=== PATIENT | female | born 1945 | race American Indian/Alaskan Native ===

== ENCOUNTER 2016-10-03 12:29 | Inpatient (IN) | payer MEDICARE ==
--- NOTE | 2016-10-03 12:52 | Emergency Department Report ---
Chief Complaint: Chest Pain Stated Complaint: CHEST PAIN Time Seen by Provider: 10/03/16 12:46 - HPI History of Present Illness: Patient is a 70-year-old female who presents to ED complaining that side and sharp, closed, it out of 10 intensity left-sided chest pain. 2 day. Patient states yesterday she started experiencing chest pain. Patient states sometimes pain radiates down her left arm and starts to tingle. She denies loss of consciousness. Patient states she takes blood pressure medication. Patient denies fevers chills/nausea/vomiting/abdominal pain/dysuria/headaches/ dizziness. - ROS Review of Systems: As noted in HPI - Exam Vital Signs: Vital Signs 10/03/16 12:30 Temperature 97.7 F Pulse Rate 73 Respiratory 20 Rate Blood Pressure 140/80 O2 Sat by Pulse 100 Oximetry Physical Exam: GENERAL: Alert and oriented x3, no apparent distress, Normal Gait, atraumatic. HEAD: Head is normocephalic and a-traumatic. EYES: Extra ocular muscles are intact. Pupils are equal, round, and reactive to light and accommodation. NECK: Supple. Non edematous, No carotid bruits. No lymphadenopathy or thyromegaly. LUNGS: Symetrical with respiration, No wheezing, no rales or crackles, CTAB. HEART: S1, S2 present, regular rate and rhythm without murmur, no rubs, no gallops. ABDOMEN: No organomegaly was noted,Positive bowel sounds, soft, and non- distended. . Nontender to palpation on all Quadrants, NO CVA tenderness. SKIN: Warm and dry, No lesions, No ulceration or induration present. MSE screening note: Focused history and physical exam performed. Due to findings the following was ordered: ED Medical Decision Making - EKG Data EKG shows normal: sinus rhythm (with occasional PVCs and fusion complexes) - EKG Data Interpretation: other (nonspecific T-wave abnormality) - Medical Decision Making Chest pain protocol ordered. EKG completed EKG result as specified. Patient is in no acute or respiratory distress. Patient awaiting to see the physician. ED Disposition for MSE Condition: Stable
[2016-10-03 14:03] LABS: Anion Gap 22 mmol/L; Blood Urea Nitrogen 16 mg/dL (7-17); Calcium 9.9 mg/dL (8.4-10.2); Carbon Dioxide 22 mmol/L (22-30); Chloride 101.2 mmol/L (98-107); Glucose 99 mg/dL (65-100); Potassium 3.6 mmol/L (3.6-5.0); Sodium 142 mmol/L (137-145)
[2016-10-03 14:05] LABS: Basophils % (Auto) 0.9 % (0.0-1.8); Eosinophils % (Auto) 0.7 % (0.0-4.3); Hematocrit 37.3 % (30.3-42.9); Hemoglobin 12.4 gm/dl (10.1-14.3); Mean Corpuscular HGB Conc 33 % (30-34); Mean Corpuscular Hemoglobin 27 pg (28-32); Mean Corpuscular Volume 81 fl (79-97); Platelet Count 421 K/mm3 (140-440); Red Blood Count 4.59 M/mm3 (3.65-5.03); Red Cell Distribution Width 15.6 % (13.2-15.2); White Blood Count 7.6 K/mm3 (4.5-11.0)
[2016-10-03] MEDS ORDERED: PEPCID IV ONE (16:49)
[2016-10-03] MEDS ORDERED: NACL 0.9% 1000 ML 1,000 ML IV ONE (16:49)
[2016-10-03] MEDS ORDERED: NITROSTAT SL PRN (16:50)
--- NOTE | 2016-10-03 16:52 | Emergency Department Report ---
ED General Adult HPI - General Chief complaint: Chest Pain Stated complaint: CHEST PAIN Time Seen by Provider: 10/03/16 16:40 Source: patient Mode of arrival: Wheelchair Limitations: No Limitations - History of Present Illness Initial comments: Primary care Dr.: Dr. Betancourt Past medical history: Hypertension, GERD, daily use of aspirin This is a 70-year-old female, previously unknown to me. She presents to the ER complaining of dizziness, chest pain, shortness of breath and syncope. Patient reports that chest pain is central and left-sided, radiates to the left upper extremity, and is associated with dizziness, sensation of almost passing out. Patient admits to shortness of breath, but denies vomiting or diaphoresis. There is no leg pain. There is no leg swelling. No recent trips greater than 4 hours. No recent hospital admissions. Patient reports no stress test since the mid . There is no history of hematemesis or bright red blood per rectum. She reports that while in the waiting room today waiting to register, she passed out, thinks she hit her head. Prior to the event, she did not have sudden or thunderclap headache, or severe neck pain. She does admit to chronic lower back pain, but this is not new, worsening or different. -: Gradual Location: chest Radiation: extremity Quality: aching Consistency: intermittent Improves with: none Worsens with: none Associated Symptoms: chest pain, headaches, syncope - Related Data Allergies Allergy/AdvReac Type Severity Reaction Status Date / Time No Known Allergies Allergy Unverified 10/03/16 12:30 ED Review of Systems ROS: Stated complaint: CHEST PAIN Other details as noted in HPI Constitutional: malaise, weakness Eyes: denies: vision change ENT: denies: epistaxis Respiratory: shortness of breath Cardiovascular: chest pain, syncope Gastrointestinal: denies: vomiting Genitourinary: denies: dysuria Musculoskeletal: back pain (chronic) Skin: denies: lesions Neurological: headache ED Past Medical Hx - Past Medical History Hx Hypertension: Yes Hx GERD: Yes Additional medical history: CHRONIC BACK PAIN - Surgical History Additional Surgical History: BACK SURGERY X 4. HYSTERECTOMY. TONSILLECTOMY - Social History Smoking Status: Former Smoker Substance Use Type: None ED Physical Exam - General Limitations: No Limitations General appearance: alert, in no apparent distress - Head Head exam: Present: atraumatic, normocephalic - Eye Eye exam: Present: normal appearance, EOMI. Absent: nystagmus - ENT ENT exam: Present: normal exam, normal orophraynx, mucous membranes moist, normal external ear exam - Neck Neck exam: Present: normal inspection, full ROM. Absent: tenderness, meningismus - Respiratory Respiratory exam: Present: normal lung sounds bilaterally. Absent: respiratory distress, wheezes, rales, rhonchi, stridor, chest wall tenderness - Cardiovascular Cardiovascular Exam: Present: regular rate, normal rhythm, normal heart sounds. Absent: bradycardia, tachycardia, irregular rhythm, systolic murmur, diastolic murmur, rubs, gallop - GI/Abdominal GI/Abdominal exam: Present: soft, normal bowel sounds. Absent: distended, tenderness, guarding, rebound, rigid, pulsatile mass - Extremities Exam Extremities exam: Present: normal inspection, full ROM, normal capillary refill. Absent: tenderness, pedal edema, joint swelling, calf tenderness - Back Exam Back exam: Present: normal inspection, full ROM. Absent: tenderness, CVA tenderness (R), CVA tenderness (L), muscle spasm, paraspinal tenderness, vertebral tenderness - Neurological Exam Neurological exam: Present: alert, oriented X3, normal gait (normal gait. Normal tandem gait. Negative Romberg. Normal [id number]. No pass pointing.) , other (Extraocular movements intact. Tongue midline. No facial droop. Facial sensation intact to light touch in the V1, V2, V3 distribution bilaterally. 5 and 5 strength in 4 extremities.. Sensation is intact to light touch in 4 extremities.). Absent: motor sensory deficit - Psychiatric Psychiatric exam: Present: normal affect, normal mood - Skin Skin exam: Present: warm, dry, intact, normal color. Absent: rash ED Course Vital Signs 10/03/16 10/03/16 10/03/16 12:30 18:12 18:18 Temperature 97.7 F Pulse Rate 73 58 L Respiratory 20 20 Rate Blood Pressure 140/80 169/75 Blood Pressure 169/75 [Left] O2 Sat by Pulse 100 99 Oximetry - Reevaluation(s) Reevaluation #1: 10/03/16 17:27 Differential diagnosis: Acute coronary syndrome, structural cardiac disease, pulmonary embolus, concussion, transient ischemic attack, electrolyte imbalance , orthostasis Assessment and plan: Elderly female with , hypertension, chest pain, shortness of breath, syncope. She has a GCS of 15, with an NIH score of 0.Patient is clinically sober at this time. The cervical spine is cleared through nexus and solomon islander c spine rule Low risk by well's criteria, no pulmonary embolus or DVT risk factors. Laboratory studies, CT scan of the head pending given head trauma. D-dimer is pending. Plan to admit once initial data points back. Reevaluation #2: 10/03/16 18:15 CT scan of the head negative. D-dimer positive. CT scan of the chest ordered. Patient's remaining ER pending results of the CAT scan of the chest. However , case is discussed with the Hospital physician, Dr. Bruner, who accepts the patient to his service for chest pain and syncope. Reevaluation #3: 10/03/16 21:04 CT scan of the chest negative. Patient appears improved. She will be sent upstairs for further evaluation and management. ED Medical Decision Making - Lab Data Result diagrams: 10/03/16 13:19 10/03/16 13:19 Vital Signs 10/03/16 12:30 Temperature 97.7 F Pulse Rate 73 Respiratory 20 Rate Blood Pressure 140/80 O2 Sat by Pulse 100 Oximetry Laboratory Last Values WBC 7.6 K/mm3 (4.5-11.0) 10/03/16 13:19 RBC 4.59 M/mm3 (3.65-5.03) 10/03/16 13:19 Hgb 12.4 gm/dl (10.1-14.3) 10/03/16 13:19 Hct 37.3 % (30.3-42.9) 10/03/16 13:19 MCV 81 fl (79-97) 10/03/16 13:19 MCH 27 pg (28-32) L 10/03/16 13:19 MCHC 33 % (30-34) 10/03/16 13:19 RDW 15.6 % (13.2-15.2) H 10/03/16 13:19 Plt Count 421 K/mm3 (140-440) 10/03/16 13:19 Lymph % (Auto) 42.6 % (13.4-35.0) H 10/03/16 13:19 [place] % (Auto) 8.3 % (0.0-7.3) H 10/03/16 13:19 Eos % (Auto) 0.7 % (0.0-4.3) 10/03/16 13:19 Baso % (Auto) 0.9 % (0.0-1.8) 10/03/16 13:19 Lymph # 3.2 K/mm3 (1.2-5.4) 10/03/16 13:19 [place] # 0.6 K/mm3 (0.0-0.8) 10/03/16 13:19 Eos # 0.1 K/mm3 (0.0-0.4) 10/03/16 13:19 Baso # 0.1 K/mm3 (0.0-0.1) 10/03/16 13:19 Seg Neutrophils % 47.5 % (40.0-70.0) 10/03/16 13:19 Seg Neutrophils # 3.6 K/mm3 (1.8-7.7) 10/03/16 13:19 Sodium 142 mmol/L (137-145) 10/03/16 13:19 Potassium 3.6 mmol/L (3.6-5.0) 10/03/16 13:19 Chloride 101.2 mmol/L (98-107) 10/03/16 13:19 Carbon Dioxide 22 mmol/L (22-30) 10/03/16 13:19 Anion Gap 22 mmol/L 10/03/16 13:19 BUN 16 mg/dL (7-17) 10/03/16 13:19 Creatinine 1.0 mg/dL (0.7-1.2) 10/03/16 13:19 Estimated GFR 55 ml/min 10/03/16 13:19 BUN/Creatinine Ratio 16.00 % 10/03/16 13:19 Glucose 99 mg/dL (65-100) 10/03/16 13:19 Calcium 9.9 mg/dL (8.4-10.2) 10/03/16 13:19 Magnesium 1.6 mg/dL (1.7-2.3) L 10/03/16 17:05 Troponin T < 0.010 ng/mL (0.00-0.029) 10/03/16 15:47 - EKG Data 10/03/16 17:28 Normal sinus, 68 beats minute, normal axis, normal intervals, premature ventricular contractions, nonspecific T-wave abnormality, abnormal EKG, not morphologically consistent with STEMI - Radiology Data Radiology results: image reviewed interpreted by me: One view x-ray of the chest demonstrates no acute disease ct head negative Critical care attestation.: If time is entered above; I have spent that time in minutes in the direct care of this critically ill patient, excluding procedure time. ED Disposition Clinical Impression: Syncope, Chest pain Disposition: OP ADMITTED IP TO THIS HOSP Is pt being admited?: Yes Condition: Stable
[2016-10-03] MEDS ORDERED: MAGNESIUM SULFATE 2GM/50ML 50 ML IV ONE (17:24)
[2016-10-03 17:41] LABS: INR 1.06 (0.87-1.13)
--- NOTE | 2016-10-03 17:57 | Cat Scan Report ---
FINAL REPORT EXAM: CT HEAD/BRAIN WO CON HISTORY: syncope head trauma TECHNIQUE: CT head without contrast PRIORS: None. FINDINGS: No acute intra-axial or extra-axial hemorrhage is identified. There is no evidence of midline shift or mass effect. The ventricles and sulci are within normal limits. Egnle-white matter differentiation is intact. No acute parenchymal abnormalities seen. Bony calvarium is grossly intact. Visualized portions of the mastoids and paranasal sinuses are unremarkable. IMPRESSION: Negative CT head
[2016-10-03 19:21] LABS: Bilirubin,Urine NEG (Negative); Blood,Urine NEG (Negative); Ketones,Urine TR mg/dL (Negative); Leukocyte Esterase,Urine TR (Negative); Mucus,Urine FEW /HPF; Nitrite,Urine NEG (Negative); Urobilinogen,Urine < 2.0 mg/dL (<2.0)
--- NOTE | 2016-10-03 19:38 | Cat Scan Report ---
FINAL REPORT EXAM: CT ANGIO CHEST HISTORY: cp and syncope TECHNIQUE: CT chest CT angiogram with reconstructions PRIORS: None. FINDINGS: There is no evidence of filling defect within the central pulmonary vasculature to suggest the presence of acute pulmonary embolus. No evidence of mediastinal pathologic lymph node enlargement Heart and great vessels are unremarkable. The aorta is normal in caliber. No focal pulmonary infiltrate identified. No pleural fluid collection seen. No acute pulmonary abnormality noted. Visualized portion of the upper abdomen demonstrates no acute change. Noted is a low-density focus within the left lobe of the liver 1.4 centimeters likely reflecting cyst or hemangioma. IMPRESSION: No CT evidence of acute pulmonary embolus No acute abnormality seen Low-density focus within liver likely reflects a cyst or hemangioma
[2016-10-03] MEDS ORDERED: ZANAFLEX PO PRN (22:20)
[2016-10-03] MEDS ORDERED: SODIUM CHLORIDE FLUSH SYRINGE 10 ML IV PRN (22:26)
--- NOTE | 2016-10-03 22:26 | History and Physical Report ---
History of Present Illness Date of examination: 10/03/16 Date of admission: 10/03/16 18:14 Chief complaint: Chest pain and passed out. History of present illness: 70-year-old female presents to the ER complaining of dizziness, chest pain, shortness of breath and syncope. Patient reports that chest pain is central and left-sided, radiates to the left upper extremity, and is associated with dizziness, sensation of almost passing out. Patient admits to shortness of breath, but denies vomiting or diaphoresis. There is no leg pain. There is no leg swelling. No recent trips greater than 4 hours. No recent hospital admissions. Patient reports no stress test since the mid . There is no history of hematemesis or bright red blood per rectum. She reports that while in the waiting room today waiting to register, she passed out, thinks she hit her head. Prior to the event, she did not have sudden or thunderclap headache, or severe neck pain. She does admit to chronic lower back pain, but this is not new, worsening or different. Gradual Location: chest Radiation: extremity Quality: aching Consistency: intermittent Improves with: none Worsens with: none Associated Symptoms: chest pain, headaches, syncope Past History Past Medical History: GERD, hypertension Past Surgical History: hysterectomy, Other (Back surgeryx4+Tonsillectomy) Social history: lives with family, smoking (in the past) Medications and Allergies Allergies Allergy/AdvReac Type Severity Reaction Status Date / Time No Known Allergies Allergy Unverified 10/03/16 12:30 Home Medications Medication Instructions Recorded Confirmed Last Taken Type Hydrochlorothiazide [HCTZ] 25 mg PO QDAY 10/03/16 10/03/16 10/03/16 History Losartan [Cozaar] 50 mg PO QDAY 10/03/16 10/03/16 10/03/16 History Omeprazole Magnesium [PriLOSEC Otc] 20 mg PO DAILY 10/03/16 10/03/16 10/03/16 History Ondansetron [Zofran TAB] 4 mg PO DAILY 10/03/16 10/03/16 Unknown History Ranitidine HCl [Zantac 300 MG TAB] 300 mg PO DAILY 10/03/16 10/03/16 10/03/16 History Tizanidine HCl [Zanaflex] 2 mg PO QHS PRN 10/03/16 10/03/16 Unknown History Active Meds: Active Medications Hydrochlorothiazide (Hctz) 25 mg PO QDAY PAM Losartan Potassium (Cozaar) 50 mg PO QDAY PAM Miscellaneous Medication (Omeprazole Magnesium [Prilosec Otc]) 20 mg PO DAILY PAM Miscellaneous Medication (Ranitidine Hcl [Zantac 300 Mg Tab]) 300 mg PO DAILY PAM Miscellaneous Medication (Tizanidine Hcl [Zanaflex]) 2 mg PO QHS PRN PRN Reason: Muscle Spasm Nitroglycerin (Nitrostat) 0.4 mg SL .Q5MIN PRN PRN Reason: Chest Pain Last Admin: 10/03/16 18:12 Dose: 0.4 mg Ondansetron HCl (Zofran) 4 mg PO DAILY [facility] Review of Systems All systems: negative Cardiovascular: chest pain Neurological: syncope Exam - Constitutional Vitals: Temp Pulse Resp BP Pulse Ox 98.5 F 70 16 147/79 100 10/03/16 20:30 10/03/16 20:30 10/03/16 20:30 10/03/16 20:30 10/03/16 20:30 General appearance: Present: no acute distress, well-nourished - EENT Eyes: Present: PERRL ENT: hearing intact, clear oral mucosa - Neck Neck: Present: supple, normal ROM - Respiratory Respiratory effort: normal Respiratory: bilateral: CTA - Cardiovascular Heart Sounds: Present: S1 & S2. Absent: rub, click - Extremities Extremities: pulses symmetrical, No edema Peripheral Pulses: within normal limits - Abdominal General gastrointestinal: Present: soft, non-tender, non-distended, normal bowel sounds Female genitourinary: Present: normal - Integumentary Integumentary: Present: clear, warm, dry - Musculoskeletal Musculoskeletal: gait normal, strength equal bilaterally - Psychiatric Psychiatric: appropriate mood/affect, intact judgment & insight - Neurologic Neurologic: CNII-XII intact, moves all extremities Results - Labs CBC & Chem 7: 10/03/16 13:19 10/03/16 13:19 Labs: Abnormal lab results 10/03/16 Range/Units 18:18 Urine pH 8.0 H (5.0-7.0) Assessment and Plan - Patient Problems (1) Chest pain Current Visit: Yes Status: Acute Plan to address problem: R/o [place] w/u-Serial CE's and Lexiscan (2) Syncope Current Visit: Yes Status: Acute Qualifiers: Encounter type: initial encounter Plan to address problem: Syncope W/u (3) HTN (hypertension) Current Visit: Yes Status: Chronic Qualifiers: Hypertension type: essential hypertension Qualified Code(s): I10 - Essential (primary) hypertension Plan to address problem: cont antihypertensives (4) GERD (gastroesophageal reflux disease) Current Visit: Yes Status: Chronic Qualifiers: Esophagitis presence: without esophagitis Qualified Code(s): K21.9 - Gastro -esophageal reflux disease without esophagitis Plan to address problem: Cont PPI's (5) Low back pain Current Visit: Yes Status: Chronic Qualifiers: Chronicity: chronic Plan to address problem: Cont Tizanidine (6) DVT prophylaxis Current Visit: Yes Status: Acute Plan to address problem: Lovenox 40 mg sq qd
[2016-10-04 00:13] LABS: Creatine Kinase MB 1.3 ng/mL (0.0-4.0)
[2016-10-04 00:14] LABS: Creatine Kinase 148 units/L (30-135)
[2016-10-04] MEDS ORDERED: COZAAR PO SCH ×2 (06:00→10:00)
[2016-10-04] MEDS ORDERED: HCTZ PO SCH ×2 (06:00→10:00)
[2016-10-04] MEDS ORDERED: LEXISCAN IV NR (08:11)
[2016-10-04 08:48] LABS: Creatine Kinase MB 1.9 ng/mL (0.0-4.0)
[2016-10-04 08:50] LABS: Creatine Kinase 230 units/L (30-135)
--- NOTE | 2016-10-04 09:13 | XRay Report ---
Single view chest: History: Chest pain. Findings: Heart size is upper limit of normal. Trachea is midline. No consolidation, pneumothorax or pleural effusion. Impression: No acute cardiopulmonary findings.
[2016-10-04] MEDS ORDERED: PROTONIX PO SCH (10:00)
[2016-10-04] MEDS ORDERED: ZOFRAN PO SCH (10:00)
[2016-10-04] MEDS ORDERED: NON-FORMULARY (Ranitidine Hcl [Zantac 300 Mg Tab] 300 MG) PO SCH (10:00)
--- NOTE | 2016-10-04 12:56 | Discharge Summary ---
Providers - Providers Date of Admission: 10/03/16 18:14 Date of discharge: 10/04/16 Attending physician: YRN VILLEDA 10/03/16 Consult to Cardiac Rehabilitation [CONS] Routine Reason For Exam: Phase I Primary care physician: PROPERTY CARETAKER Hospitalization Condition: Stable Hospital course: 70-year-old female presents to the ER complaining of dizziness, chest pain, shortness of breath and syncope. She had CT of the head without contrast was unremarkable. CTA chest did not reveal any pulmonary embolism, myocardial stress test was also normal. She was discharged home in stable condition. Discharge Diagnosis: (1) Chest pain Current Visit: Yes Status: Acute Plan to address problem: likley due to GERD OR rulled out with-Serial CE's and Lexiscan (2) Syncope Current Visit: Yes Status: Acute Qualifiers: Encounter type: initial encounter Plan to address problem: Likely vasovagal, Ct head unremarkable. (3) HTN (hypertension) Current Visit: Yes Status: Chronic Qualifiers: Hypertension type: essential hypertension Qualified Code(s): I10 - Essential (primary) hypertension Plan to address problem: cont antihypertensives (4) GERD (gastroesophageal reflux disease) Current Visit: Yes Status: Chronic Qualifiers: Esophagitis presence: without esophagitis Qualified Code(s): K21.9 - Gastro -esophageal reflux disease without esophagitis Plan to address problem: Cont PPI's (5) Low back pain Current Visit: Yes Status: Chronic Qualifiers: Chronicity: chronic Plan to address problem: Cont Tizanidine Disposition: DISCHARGED TO HOME OR SELFCARE Time spent for discharge: 32 minutes Core Measure Documentation - Palliative Care Palliative Care/ Comfort Measures: Not Applicable - Core Measures Any of the following diagnoses?: none Exam - Constitutional Vitals: Temp Pulse Resp BP Pulse Ox 98.1 F 79 18 113/91 100 10/04/16 04:35 10/04/16 08:54 10/04/16 04:35 10/04/16 08:54 10/04/16 04:35 General appearance: Present: no acute distress - EENT Eyes: Present: EOM intact ENT: hearing intact, clear oral mucosa - Neck Neck: Present: supple, normal ROM - Respiratory Respiratory: bilateral: CTA - Cardiovascular Rhythm: regular Heart Sounds: Present: S1 & S2 - Extremities Extremities: no ischemia, No edema Peripheral Pulses: within normal limits - Abdominal General gastrointestinal: Present: soft, non-tender, non-distended - Integumentary Integumentary: Present: warm, dry - Psychiatric Psychiatric: appropriate mood/affect - Neurologic Neurologic: no focal deficits, moves all extremities Plan Activity: advance as tolerated, fall precautions Diet: low cholesterol, low salt Follow up with: PRIMARY CARE, [Primary Care Provider] - 3-5 Days
[2016-10-04 17:33] VITALS: BP 117/59
--- NOTE | 2016-10-05 12:57 | Treadmill Report ---
THALLIUM STRESS TEST LEFT VENTRICLE: Left ventricular chamber size is within normal. Perfusion study demonstrates homogeneous uptake of the tracer in all segments, no significant perfusion defects identified. Gated analysis demonstrates normal left ventricular systolic function, ejection fraction 69%. CONCLUSION: Normal myocardial perfusion study. JOB# [id number] CA/NTS
--- NOTE | 2016-10-06 08:10 | Vascular Lab Report ---
CAROTID DUPLEX STUDY: RIGHT PSVEDV CCA PROX: 7014 CCA DIST: 7220 ICA PROX: 6818 ICA MID: 6526 ICA DIST: 7229 ECA: 78 VERT: 45 12 LEFT PSVEDV CCA PROX:[id number]` CCA DIST: 4414 ICA PROX: 5924 ICA MID: 7731 ICA DIST: 6222 ECA: 78 VERT: 39 15 REASON FOR EXAM: Carotid artery stenosis/syncope. COMMENTS ON THE RIGHT: Doppler frequency analysis is consistent with 16 to 49 percent diameter reduction of the internal carotid artery. Minimal amount of plaque is seen. The common carotid artery is patent. The external carotid artery is patent. The vertebral artery has antegrade flow. COMMENTS ON THE LEFT: Doppler frequency analysis is consistent with 16 to 49 percent diameter reduction of the internal carotid artery. Minimal amount of plaque is seen. The common carotid artery is patent. The external carotid artery is patent. The vertebral artery has antegrade flow. IMPRESSION: Less than 50% diameter reduction in the internal carotid arteries bilaterally. Consider repeat carotid artery duplex in 12 months.
--- NOTE | 2016-10-08 08:45 | Query- Chest Pain ---
Sylvester Zapien____Juan Date:____10/08/16 Public Service Director/CDS:____Gold / Maris Phone#: [phone] Exercise your independent professional judgment when responding to query. Questions asked do not imply a particular answer is desired or expected. We greatly appreciate your clarification on this issue. Clinical Documentation States: 70 year old female was admitted on 10/03/16. The patient was complained of chest pain, shortness of breath, and syncope. The discharge summary states " Chest pain, Acute " Clinical Findings Show: Thallium stress test conclusion: Normal myocardial perfusion study Please document the etiology of Chest Pain: [ ] Myocardial Infarction [ ] Pneumonia [ ] Mediastinitis [ ] Costochondritis [ ] Pulmonary Embolism [ ] Coronary Artery Disease [x ] GERD [ ] Other: [ ] Comment/Explanation: [ ] Not applicable Present on Admission: [x ] Yes (Y) [ ] Clinically undeterminable (W) [ ] No(N) Please document response in your Progress Notes and/or Discharge Summary and indicate if the condition was present on admission. DAVID
== END 2016-10-04 18:30 | disposition home or self-care (01) | DRG 392 ==
LOC: ED 12:29 → 4A 18:14
PROVIDERS: ADMIT Internal Medicine; ATTEND Internal Medicine
DX: K21.9 Gastro-esophageal reflux disease without esophagitis (principal); R55 Syncope and collapse; I10 Essential (primary) hypertension; G89.29 Other chronic pain; M54.5 Low back pain; Z79.82 Long term (current) use of aspirin; Z90.710 Acquired absence of both cervix and uterus; Z98.890 Other specified postprocedural states; Z87.891 Personal history of nicotine dependence
CPT/HCPCS: 36415; 70450; 71010; 71275; 78452; 80048; 81001; 82550; 82553; 83735; 84443; 84484; 85025; 85379; 85610; 93005; 93010; 93880; 96374; 96375; A9502; J2785; J3475; J7030; Q0162; Q9967

== ENCOUNTER 2019-05-16 14:57 | Observation (INO) | payer MEDICARE ==
[2019-05-16] MEDS ORDERED: BABY ASPIRIN PO ONE (15:13)
[2019-05-16] MEDS ORDERED: ZOFRAN IV ONE (15:14)
[2019-05-16] MEDS ORDERED: MORPHINE IV ONE (15:14)
--- NOTE | 2019-05-16 15:18 | Emergency Department Report ---
ED Chest Pain HPI - General Chief Complaint: Chest Pain Stated Complaint: CHEST PAIN/COUGH Time Seen by Provider: 05/16/19 15:07 Source: patient, EMS Mode of arrival: Stretcher Limitations: No Limitations - History of Present Illness Initial Comments: Patient is 73 years old female with history of hypertension and chronic back praline. Patient presented to the ER complaining of left sided chest pain, sharp with radiation to the back. Patient stated that pain has been going on for the last 3 days. Patient rated her pain as 10 out of 10. Patient denied any shortness of breath, fever or chills. Patient also stated that she has been coughing also. MD Complaint: chest pain - Related Data Home Medications Medication Instructions Recorded Confirmed Last Taken Losartan [Cozaar] 50 mg PO QDAY 10/03/16 10/03/16 10/03/16 Omeprazole Magnesium [PriLOSEC Otc] 20 mg PO DAILY 10/03/16 10/03/16 10/03/16 Ondansetron [Zofran TAB] 4 mg PO DAILY 10/03/16 10/03/16 Unknown Tizanidine HCl [Zanaflex] 2 mg PO QHS PRN 10/03/16 10/03/16 Unknown hydroCHLOROthiazide [HCTZ] 25 mg PO QDAY 10/03/16 10/03/16 10/03/16 Allergies Allergy/AdvReac Type Severity Reaction Status Date / Time No Known Allergies Allergy Unverified 10/03/16 12:30 Heart Score - HEART Score History: Moderately suspicious EKG: Non-specific Age: > 65 Risk factors: 1-2 risk factors Troponin: < normal limit HEART Score: 5 - Critical Actions Critical Actions: 4-6 pts:12-16.6% risk of adverse cardiac event. Should be admitted ED Review of Systems ROS: Stated complaint: CHEST PAIN/COUGH Other details as noted in HPI Comment: All other systems reviewed and negative Constitutional: denies: chills, fever Respiratory: cough. denies: shortness of breath, SOB with exertion, SOB at rest Cardiovascular: chest pain. denies: palpitations Gastrointestinal: denies: abdominal pain, nausea, vomiting Musculoskeletal: back pain Neurological: denies: headache, weakness, numbness, paresthesias, confusion ED Past Medical Hx - Past Medical History Previous Medical History?: Yes Hx Hypertension: Yes Hx GERD: Yes Additional medical history: CHRONIC BACK PAIN - Surgical History Past Surgical History?: Yes Additional Surgical History: BACK SURGERY X 4. HYSTERECTOMY. TONSILLECTOMY - Social History Smoking Status: Never Smoker Substance Use Type: None - Medications Home Medications: Home Medications Medication Instructions Recorded Confirmed Last Taken Type Losartan [Cozaar] 50 mg PO QDAY 10/03/16 10/03/16 10/03/16 History Omeprazole Magnesium [PriLOSEC Otc] 20 mg PO DAILY 10/03/16 10/03/16 10/03/16 History Ondansetron [Zofran TAB] 4 mg PO DAILY 10/03/16 10/03/16 Unknown History Tizanidine HCl [Zanaflex] 2 mg PO QHS PRN 10/03/16 10/03/16 Unknown History hydroCHLOROthiazide [HCTZ] 25 mg PO QDAY 10/03/16 10/03/16 10/03/16 History ED Physical Exam - General Limitations: No Limitations General appearance: alert, in no apparent distress - Head Head exam: Present: atraumatic, normocephalic, normal inspection - Eye Eye exam: Present: normal appearance, PERRL - ENT ENT exam: Present: normal exam, normal orophraynx, mucous membranes moist - Neck Neck exam: Present: normal inspection, full ROM. Absent: tenderness, meningismus, lymphadenopathy, thyromegaly - Respiratory Respiratory exam: Present: normal lung sounds bilaterally - Cardiovascular Cardiovascular Exam: Present: regular rate, normal rhythm, normal heart sounds - GI/Abdominal GI/Abdominal exam: Present: soft, normal bowel sounds. Absent: distended, tenderness, guarding, rebound, rigid, diminished bowel sounds, organomegaly, mass, bruit, pulsatile mass, hernia - Extremities Exam Extremities exam: Present: normal inspection, full ROM, normal capillary refill - Back Exam Back exam: Present: normal inspection, full ROM. Absent: CVA tenderness (R), CVA tenderness (L), muscle spasm, paraspinal tenderness, vertebral tenderness - Neurological Exam Neurological exam: Present: alert, oriented X3, CN II-XII intact, normal gait, reflexes normal - Psychiatric Psychiatric exam: Present: normal mood - Skin Skin exam: Present: warm, intact, normal color ED Course Vital Signs 05/16/19 05/16/19 05/16/19 15:16 16:30 18:12 Temperature 98.3 F 98.2 F Pulse Rate 68 74 62 Respiratory 14 16 18 Rate Blood Pressure 158/91 159/75 182/85 [Right] O2 Sat by Pulse 98 100 100 Oximetry ED Medical Decision Making - Lab Data Result diagrams: 05/16/19 15:35 05/16/19 15:35 - EKG Data -: EKG Interpreted by Wy EKG shows normal: sinus rhythm Rate: normal - EKG Data Interpretation: no acute changes - Radiology Data Radiology results: report reviewed Referring Physician: KVNG BARTHOLOMEW Patient Name: BOWEN ISBELL Date of : 1945 Sex: Female Report Date: 2019-05-16 Report Status: [place] [address] Cat Scan Report Signed Patient: BOWEN ISBELL MR#: [id number] : 1945 Acct:[id number] Age/Sex: 73 / F ADM Date: 05/16/19 Loc: ED Attending Dr: Ordering Physician: KVNG BARTHOLOMEW Date of Service: 05/16/19 Procedure(s): CT angio chest Accession Number(s): [id number] cc: KVNG BARTHOLOMEW CT angio chest INDICATION / CLINICAL INFORMATION: CHEST PAIN WITH SOB. TECHNIQUE: Precontrast bolus timing images were obtained followed by postcontrast axial and reformatted images. 3-plane MIP reconstructions were performed at an independent workstation by the technologist. All CT scans at this location are performed using CT dose reduction for ALARA by means of automated exposure control. COMPARISON: Chest CTA 10/03/2016 FINDINGS: Pulmonary arterial enhancement is normal bilaterally. No evidence of pulmonary embolism. No acute interstitial or airspace pulmonary disease. No pulmonary nodularity. Thoracic aortic enhancement is homogeneous, no evidence of dissection. Slight ectasia of the ascending thoracic aorta is noted. No cardiac enlargement, pericardial effusion or mediastinal adenopathy. There are small axillary lymph nodes noted bilaterally. No significant upper abdominal abnormalities. Segmental instrumentation noted in the upper lumbar spine IMPRESSION: 1. No evidence of pulmonary embolus or acute abnormality. Signer Name: Irving Wilson MD Signed: 05/16/2019 6:35 PM Workstation Name: [id number] Transcribed By: JESÚS Dictated By: Irving Wilson MD Electronically Authenticated By: Irving Wilson MD Signed Date/Time: 05/16/191834 DD/ 27 TD/TT: - Medical Decision Making Patient is 73 years old female with history of hypertension and chronic back praline. Patient presented to the ER complaining of left sided chest pain, sharp with radiation to the back. Patient stated that pain has been going on for the last 3 days. Patient rated her pain as 10 out of 10. Patient denied any shortness of breath, fever or chills. Patient also stated that she has been coughing also. EKG with no acute change. Troponin is negative so far. CTA chest is negative for PE or aortic dissection. I discussed the patient was Dr. Bruner, he agreed to admit the patient to medical service. Critical Care Time: Yes Critical care time in (mins) excluding proc time.: 30 Critical care attestation.: If time is entered above; I have spent that time in minutes in the direct care of this critically ill patient, excluding procedure time. ED Disposition Clinical Impression: Chest pain, Unstable angina Disposition: - OP ADMIT IP TO THIS HOSP Is pt being admited?: Yes Condition: Stable Instructions: Chest Pain (ED), Angina (ED)
--- NOTE | 2019-05-16 15:48 | XRay Report ---
CHEST 1 VIEW INDICATION: Chest Pain. COMPARISON: 10/03/2016 FINDINGS: Support devices: None. Heart: Within normal limits. Pulmonary vasculature: Normal. Lungs/Pleura: No acute air space or interstitial disease. Additional findings: None. IMPRESSION: 1. No acute findings. Signer Name: Mike Espinoza MD Signed: 05/16/2019 3:43 PM Workstation Name: [id number]
[2019-05-16 16:19] LABS: Basophils % (Auto) 0.2 % (0.0-1.8); Eosinophils # (Auto) 0.1 K/mm3 (0.0-0.4); Eosinophils % (Auto) 0.6 % (0.0-4.3); Hematocrit 36.9 % (30.3-42.9); Hemoglobin 11.9 gm/dl (10.1-14.3); Lymphocytes % (Auto) 31.5 % (13.4-35.0); Mean Corpuscular HGB Conc 32 % (30-34); Mean Corpuscular Volume 82 fl (79-97); Monocytes # (Auto) 0.8 K/mm3 (0.0-0.8); Monocytes % (Auto) 7.9 % (0.0-7.3); Platelet Count 425 K/mm3 (140-440); Red Blood Count 4.52 M/mm3 (3.65-5.03); Red Cell Distribution Width 14.4 % (13.2-15.2)
[2019-05-16 16:27] LABS: INR 1.06 (0.87-1.13)
[2019-05-16 16:28] LABS: Partial Thromboplastin Time 30.9 Sec. (24.2-36.6)
[2019-05-16 16:30] LABS: BUN/Creatinine Ratio 20; Blood Urea Nitrogen 18 mg/dL (7-17); Calcium 9.3 mg/dL (8.4-10.2); Hemolysis Index 5
[2019-05-16 17:48] LABS: Bacteria,Urine 1+ /HPF (Negative); Bilirubin,Urine NEG (Negative); Blood,Urine NEG (Negative); Color,Urine Yellow (Yellow); Hyaline Casts,Urine 2 /LPF; Urobilinogen,Urine < 2.0 mg/dL (<2.0)
[2019-05-16 17:50] LABS: Protein,Urine >500 mg/dL (Negative)
--- NOTE | 2019-05-16 18:40 | Cat Scan Report ---
CT angio chest INDICATION / CLINICAL INFORMATION: CHEST PAIN WITH SOB. TECHNIQUE: Precontrast bolus timing images were obtained followed by postcontrast axial and reformatted images. 3-plane MIP reconstructions were performed at an independent workstation by the technologist. All CT scans at this location are performed using CT dose reduction for ALARA by means of automated exposure control. COMPARISON: Chest CTA 10/03/2016 FINDINGS: Pulmonary arterial enhancement is normal bilaterally. No evidence of pulmonary embolism. No acute interstitial or airspace pulmonary disease. No pulmonary nodularity. Thoracic aortic enhancement is homogeneous, no evidence of dissection. Slight ectasia of the ascending thoracic aorta is noted. No cardiac enlargement, pericardial effusion or mediastinal adenopathy. There are small axillary lymph nodes noted bilaterally. No significant upper abdominal abnormalities. Segmental instrumentation noted in the upper lumbar spine IMPRESSION: 1. No evidence of pulmonary embolus or acute abnormality. Signer Name: Irving Wilson MD Signed: 05/16/2019 6:35 PM Workstation Name: [id number]
[2019-05-16] MEDS ORDERED: NITROSTAT SL ONE (19:01)
[2019-05-16] MEDS ORDERED: PROVENTIL IH PRN (20:25)
[2019-05-16] MEDS ORDERED: SODIUM CHLORIDE FLUSH SYRINGE 10 ML IV PRN (20:25)
[2019-05-16] MEDS ORDERED: DILAUDID IV PRN (20:25)
[2019-05-16] MEDS ORDERED: ZOFRAN IV PRN (20:25)
[2019-05-16] MEDS ORDERED: NITROSTAT SL PRN (20:25)
[2019-05-16] MEDS ORDERED: NACL 0.9% 1000 ML 1,000 ML IV SCH (21:00)
[2019-05-16] MEDS: MORPHINE IV PRN (21:03)
[2019-05-16 21:32] LABS: BUN/Creatinine Ratio 20; Blood Urea Nitrogen 18 mg/dL (7-17); Calcium 9.7 mg/dL (8.4-10.2); Hemolysis Index 11
--- NOTE | 2019-05-16 21:33 | History and Physical Report ---
History of Present Illness Date of examination: 05/16/19 Date of admission: 05/16/2019 Chief complaint: Chest pain History of present illness: 73-year-old -Stateless female with history of hypertension, GERD, and chronic back pain who presents to [facility] ED with complaints of progressively worsening intermittent left sided substernal chest pain. Since she has been experiencing intermittent chest pain for the past week and over the past 2 days it has progressively worsened. Patient states that this morning her pain is worst it has ever been. She describes her pain as sharp left-sided substernal with radiation to back. Pain is aggravated with activity and relieved with rest and pain medicine. She denies nausea, vomiting and and diaphoresis. Patient states that she's experienced similar chest pain approximately 2 years ago (09/2016)at which time she had cardiac workup which revealed normal Lexiscan stress test. Pt states that she is compliant with medications. Denies: n/v/d, fever, diaphoresis, hemoptysis, or recent sick contacts Past History Past Medical History: GERD, hypertension, other (chronic back pain) Past Surgical History: hysterectomy, tonsillectomy, Other ( BACK SURGERY X 4) Social history: lives with family Family history: no significant family history Medications and Allergies Allergies Allergy/AdvReac Type Severity Reaction Status Date / Time No Known Allergies Allergy Unverified 10/03/16 12:30 Home Medications Medication Instructions Recorded Confirmed Last Taken Type Losartan [Cozaar] 50 mg PO QDAY 10/03/16 05/16/19 10/03/16 History Omeprazole Magnesium [PriLOSEC Otc] 20 mg PO DAILY 10/03/16 05/16/19 10/03/16 History Tizanidine HCl [Zanaflex] 2 mg PO QPM PRN 10/03/16 05/16/19 Unknown History Diclofenac Sodium 75 mg PO BID 05/16/19 05/16/19 Unknown History Simvastatin 10 mg PO QPM 05/16/19 05/16/19 Unknown History amLODIPine [Norvasc] 5 mg PO DAILY 05/16/19 05/16/19 Unknown History predniSONE [Deltasone] 10 mg PO BID 05/16/19 05/16/19 Unknown History Active Meds: Active Medications Acetaminophen (Tylenol) 650 mg PO Q4H PRN PRN Reason: Pain MILD(1-3)/Fever >100.5/HURST Albuterol (Proventil) 2.5 mg IH Q3HRT PRN PRN Reason: Shortness Of Breath Aspirin (Baby Aspirin) 81 mg PO QDAY PAM Atorvastatin Calcium (Lipitor) 40 mg PO QHS PAM Enoxaparin Sodium (Lovenox) 40 mg SUB-Q QDAY [facility] Hydralazine HCl (Apresoline) 10 mg IV Q4HR PRN PRN Reason: Blood Pressure Hydromorphone HCl (Dilaudid) 0.5 mg IV Q3H PRN PRN Reason: Pain , Severe (7-10) Sodium Chloride (Nacl 0.9% 1000 Ml) 1,000 mls @ 42 mls/hr IV DIRECT PAM Losartan Potassium (Cozaar) 50 mg PO QDAY [facility] Morphine Sulfate (Morphine) 2 mg IV Q4H PRN PRN Reason: Pain, Moderate (4-6) Last Admin: 05/16/19 21:03 Dose: 2 mg Documented by: Nitroglycerin (Nitrostat) 0.4 mg SL Q5M PRN PRN Reason: Chest Pain Ondansetron HCl (Zofran) 4 mg IV Q8H PRN PRN Reason: Nausea And Vomiting Sodium Chloride (Sodium Chloride Flush Syringe 10 Ml) 10 ml IV BID PAM Sodium Chloride (Sodium Chloride Flush Syringe 10 Ml) 10 ml IV PRN PRN PRN Reason: LINE FLUSH Review of Systems All systems: negative Cardiovascular: chest pain, no syncope, no lightheadedness, no shortness of breath Musculoskeletal: low back pain (chronic) Exam - Physical Exam Narrative exam: Physical exam General appearance: Present: No acute distress, alert and oriented 3, well- developed, well-nourished, older adult -Stateless female - EENT Eyes: Present: PERRL, EOM intact ENT: hearing intact, normal dentition - Neck Neck: Present: supple, normal ROM - Respiratory Respiratory effort: Non-labored Respiratory: CTA bilaterally - Cardiovascular Heart rate: 81 (bpm) Rhythm: SR Heart Sounds: Present: S1 & S2. Absent: rub, click - Extremities Extremities: no ischemia, pulses intact, - Peripheral Assessment Peripheral Pulses: within normal limits - Abdominal General gastrointestinal: soft, non-tender, normal bowel sounds - Integumentary Integumentary: Present: warm, dry, - Musculoskeletal Musculoskeletal: Normal gait -Neurological Neurological: CN II-XII grossly intact - Psychiatric Psychiatric: cooperative - Constitutional Vitals: Temp Pulse Resp BP Pulse Ox 98.2 F 81 16 134/81 97 05/16/19 18:12 05/16/19 21:05 05/16/19 21:05 05/16/19 21:05 05/16/19 21:05 Results - Labs CBC & Chem 7: 05/16/19 15:35 05/16/19 15:35 Labs: Laboratory Last Values WBC 9.6 K/mm3 (4.5-11.0) 05/16/19 15:35 RBC 4.52 M/mm3 (3.65-5.03) 05/16/19 15:35 Hgb 11.9 gm/dl (10.1-14.3) 05/16/19 15:35 Hct 36.9 % (30.3-42.9) 05/16/19 15:35 MCV 82 fl (79-97) 05/16/19 15:35 MCH 26 pg (28-32) L 05/16/19 15:35 MCHC 32 % (30-34) 05/16/19 15:35 RDW 14.4 % (13.2-15.2) 05/16/19 15:35 Plt Count 425 K/mm3 (140-440) 05/16/19 15:35 Lymph % (Auto) 31.5 % (13.4-35.0) 05/16/19 15:35 [place] % (Auto) 7.9 % (0.0-7.3) H 05/16/19 15:35 Eos % (Auto) 0.6 % (0.0-4.3) 05/16/19 15:35 Baso % (Auto) 0.2 % (0.0-1.8) 05/16/19 15:35 Lymph # 3.0 K/mm3 (1.2-5.4) 05/16/19 15:35 [place] # 0.8 K/mm3 (0.0-0.8) 05/16/19 15:35 Eos # 0.1 K/mm3 (0.0-0.4) 05/16/19 15:35 Baso # 0.0 K/mm3 (0.0-0.1) 05/16/19 15:35 Seg Neutrophils % 59.8 % (40.0-70.0) 05/16/19 15:35 Seg Neutrophils # 5.7 K/mm3 (1.8-7.7) 05/16/19 15:35 PT 13.5 Sec. (12.2-14.9) 05/16/19 15:35 INR 1.06 (0.87-1.13) 05/16/19 15:35 APTT 30.9 Sec. (24.2-36.6) 05/16/19 15:35 450.44 ng/mlDDU (0-234) H 05/16/19 15:35 Sodium 140 mmol/L (137-145) 05/16/19 15:35 Potassium 3.6 mmol/L (3.6-5.0) 05/16/19 15:35 Chloride 101.6 mmol/L (98-107) 05/16/19 15:35 Carbon Dioxide 22 mmol/L (22-30) 05/16/19 15:35 20 mmol/L 05/16/19 15:35 BUN 18 mg/dL (7-17) H 05/16/19 15:35 0.9 mg/dL (0.7-1.2) 05/16/19 15:35 Estimated GFR > 60 ml/min 05/16/19 15:35 20 % 05/16/19 15:35 Glucose 94 mg/dL (65-100) 05/16/19 15:35 Calcium 9.3 mg/dL (8.4-10.2) 05/16/19 15:35 < 0.010 ng/mL (0.00-0.029) 05/16/19 20:29 17 units/L (13-60) 05/16/19 15:35 Yellow (Yellow) 05/16/19 17:25 Clear (Clear) 05/16/19 17:25 5.0 (5.0-7.0) 05/16/19 17:25 Ur Specific [place] 1.014 (1.003-1.030) 05/16/19 17:25 >500 mg/dL (Negative) 05/16/19 17:25 Neg mg/dL (Negative) 05/16/19 17:25 Neg mg/dL (Negative) 05/16/19 17:25 Neg (Negative) 05/16/19 17:25 Neg (Negative) 05/16/19 17:25 Neg (Negative) 05/16/19 17:25 < 2.0 mg/dL (<2.0) 05/16/19 17:25 Ur Leukocyte Esterase Neg (Negative) 05/16/19 17:25 2.0 /HPF (0.0-6.0) 05/16/19 17:25 1.0 /HPF (0.0-6.0) 05/16/19 17:25 U Epithel Cells (Auto) < 1.0 /HPF (0-13.0) 05/16/19 17:25 1+ /HPF (Negative) 05/16/19 17:25 Hyaline Casts 2 /LPF 05/16/19 17:25 - Imaging and Cardiology Imaging and Cardiology: CTA: FINDINGS: Pulmonary arterial enhancement is normal bilaterally. No evidence of pulmonary embolism. No acute interstitial or airspace pulmonary disease. No pulmonary nodularity. Thoracic aortic enhancement is homogeneous, no evidence of dissection. Slight ectasia of the ascending thoracic aorta is noted. No cardiac enlargement, pericardial effusion or mediastinal adenopathy. There are small axillary lymph nodes noted bilaterally. No significant upper abdominal abn ormalities. Segmental instrumentation noted in the upper lumbar spine. IMPRESSION: 1. No evidence of pulmonary embolus or acute abnormality. CXR: FINDINGS: Support devices: None. Heart: Within normal limits. Pulmonary vasculature: Normal. Lungs/Pleura: No acute air space or interstitial disease. Additional findings: None. IMPRESSION: 1. No acute findings. Assessment and Plan Assessment and plan: 73-year-old -Stateless female with history of hypertension, GERD, and chronic back pain who presents to [facility] ED with complaints of progressively worsening intermittent left sided substernal chest pain for the past 2 days. Acute Chest Pain -R/O ACS -Initiate chest pain protocol -Continuous telemetry monitoring -Continue supportive care -Pain mgmt -Echo and Lexiscan pending -Troponin negative x3 -Lexican done 09/2018 was normal -Cardiology Consulted Hypertension -Continue to monitor BP -Resume home antihypertensive meds to optimize BP -IV hydralazine when necessary GERD -History of GERD -Start Protonix daily DVT PPX -on Lovenox -SCD's Advance Directives: No VTE prophylaxis?: Chemical Plan of care discussed with patient/family: Yes
[2019-05-16 21:55] LABS: Basophils # (Auto) 0.1 K/mm3 (0.0-0.1); Basophils % (Auto) 0.7 % (0.0-1.8); Eosinophils % (Auto) 0.3 % (0.0-4.3); Hematocrit 37.2 % (30.3-42.9); Hemoglobin 12.6 gm/dl (10.1-14.3); Lymphocytes # (Auto) 3.3 K/mm3 (1.2-5.4); Lymphocytes % (Auto) 31.5 % (13.4-35.0); Mean Corpuscular HGB Conc 34 % (30-34); Mean Corpuscular Volume 82 fl (79-97); Monocytes # (Auto) 0.9 K/mm3 (0.0-0.8); Monocytes % (Auto) 8.9 % (0.0-7.3); Platelet Count 454 K/mm3 (140-440); Red Blood Count 4.55 M/mm3 (3.65-5.03); Red Cell Distribution Width 14.3 % (13.2-15.2)
[2019-05-16] MEDS ORDERED: PROTONIX IV SCH (22:00)
[2019-05-16] MEDS: ZANAFLEX PO PRN (22:44)
[2019-05-16] MEDS: SODIUM CHLORIDE FLUSH SYRINGE 10 ML IV SCH (22:45)
[2019-05-16] MEDS: PRAVACHOL PO SCH (22:45)
[2019-05-16] MEDS: APRESOLINE IV PRN (23:16)
[2019-05-17] MEDS: TYLENOL PO PRN ×2 (04:35→18:36)
[2019-05-17 06:36] LABS: Basophils # (Auto) 0.1 K/mm3 (0.0-0.1); Basophils % (Auto) 1.4 % (0.0-1.8); Eosinophils # (Auto) 0.1 K/mm3 (0.0-0.4); Eosinophils % (Auto) 0.8 % (0.0-4.3); Hematocrit 35.2 % (30.3-42.9); Hemoglobin 11.8 gm/dl (10.1-14.3); Lymphocytes # (Auto) 2.7 K/mm3 (1.2-5.4); Lymphocytes % (Auto) 27.9 % (13.4-35.0); Mean Corpuscular HGB Conc 34 % (30-34); Mean Corpuscular Volume 81 fl (79-97); Monocytes # (Auto) 0.9 K/mm3 (0.0-0.8); Monocytes % (Auto) 9.3 % (0.0-7.3); Platelet Count 382 K/mm3 (140-440); Red Blood Count 4.34 M/mm3 (3.65-5.03); Red Cell Distribution Width 14.2 % (13.2-15.2)
[2019-05-17 06:49] LABS: BUN/Creatinine Ratio 17; Blood Urea Nitrogen 15 mg/dL (7-17); Calcium 9.3 mg/dL (8.4-10.2); Hemolysis Index 4
[2019-05-17] MEDS ORDERED: LEXISCAN IV ONE (07:01)
--- NOTE | 2019-05-17 12:55 | Consultation ---
History of Present Illness Consult date: 05/17/19 Consult reason: chest pain History of present illness: 73-year-old -[place]in[place] female with history of hypertension, GERD, and chronic back pain who presents to ED with complaints of progressively worsening intermittent left sided substernal chest pain. Since she has been experiencing intermittent chest pain for the past week and over the past 2 days it has progressively worsened. Pain is aggravated with activity and relieved with rest and pain medicine. She denies nausea, vomiting and and diaphoresis. Patient denies orthopnea, pnd, palpitations. Patient states that she's experienced similar chest pain approximately 2 years ago (09/2016)at which time she had cardiac workup which revealed normal Lexiscan stress test. Past History Past Medical History: GERD, hypertension, other (chronic back pain) Past Surgical History: hysterectomy, tonsillectomy, Other ( BACK SURGERY X 4) Social history: lives with family Family history: no significant family history Medications and Allergies Allergies Allergy/AdvReac Type Severity Reaction Status Date / Time No Known Allergies Allergy Unverified 10/03/16 12:30 Home Medications Medication Instructions Recorded Confirmed Last Taken Type Losartan [Cozaar] 50 mg PO QDAY 10/03/16 05/16/19 10/03/16 History Omeprazole Magnesium [PriLOSEC Otc] 20 mg PO DAILY 10/03/16 05/16/19 10/03/16 H istory Tizanidine HCl [Zanaflex] 2 mg PO QPM PRN 10/03/16 05/16/19 Unknown History Diclofenac Sodium 75 mg PO BID 05/16/19 05/16/19 Unknown History Simvastatin 10 mg PO QPM 05/16/19 05/16/19 Unknown History amLODIPine [Norvasc] 5 mg PO DAILY 05/16/19 05/16/19 Unknown History predniSONE [Deltasone] 10 mg PO BID 05/16/19 05/16/19 Unknown History Active Meds: Active Medications Acetaminophen (Tylenol) 650 mg PO Q4H PRN PRN Reason: Pain MILD(1-3)/Fever >100.5/HURST Last Admin: 05/17/19 04:35 Dose: 650 mg Documented by: Albuterol (Proventil) 2.5 mg IH Q3HRT PRN PRN Reason: Shortness Of Breath Amlodipine Besylate (Norvasc) 5 mg PO DAILY PAM Aspirin (Baby Aspirin) 81 mg PO QDAY [facility] Atorvastatin Calcium (Lipitor) 40 mg PO QHS [facility] Last Admin: 05/16/19 22:45 Dose: 40 mg Documented by: Enoxaparin Sodium (Lovenox) 40 mg SUB-Q QDAY [facility] Hydralazine HCl (Apresoline) 10 mg IV Q4HR PRN PRN Reason: Blood Pressure Last Admin: 05/16/19 23:16 Dose: 10 mg Documented by: Hydromorphone HCl (Dilaudid) 0.5 mg IV Q3H PRN PRN Reason: Pain , Severe (7-10) Sodium Chloride (Nacl 0.9% 1000 Ml) 1,000 mls @ 42 mls/hr IV DIRECT [facility] Last Admin: 05/16/19 22:39 Dose: 42 mls/hr Documented by: Losartan Potassium (Cozaar) 50 mg PO QDAY [facility] Morphine Sulfate (Morphine) 2 mg IV Q4H PRN PRN Reason: Pain, Moderate (4-6) Last Admin: 05/16/19 21:03 Dose: 2 mg Documented by: Nitroglycerin (Nitrostat) 0.4 mg SL Q5M PRN PRN Reason: Chest Pain Ondansetron HCl (Zofran) 4 mg IV Q8H PRN PRN Reason: Nausea And Vomiting Pantoprazole Sodium (Protonix) 40 mg PO DAILY [facility] Pravastatin Sodium (Pravachol) 20 mg PO QHS [facility] Last Admin: 05/16/19 22:45 Dose: 20 mg Documented by: Sodium Chloride (Sodium Chloride Flush Syringe 10 Ml) 10 ml IV BID [facility] Last Admin: 05/16/19 22:45 Dose: 10 ml Documented by: Sodium Chloride (Sodium Chloride Flush Syringe 10 Ml) 10 ml IV PRN PRN PRN Reason: LINE FLUSH Tizanidine HCl (Zanaflex) 2 mg PO QPM PRN PRN Reason: Muscle Spasm Last Admin: 05/16/19 22:44 Dose: 2 mg Documented by: Review of Systems All systems: negative (pertinent positives in hPI) Physical Examination Vital Signs Temp Pulse Resp BP Pulse Ox 98.3 F 68 14 158/91 98 05/16/19 15:16 05/16/19 15:16 05/16/19 15:16 05/16/19 15:16 05/16/19 15:16 General appearance: no acute distress HEENT: Positive: PERRL, EOMI Neck: Positive: neck supple Cardiac: Positive: Reg Rate and Rhythm Lungs: Positive: Normal Exam Neuro: Positive: Grossly Intact Abdomen: Positive: Unremarkable Extremities: Absent: edema Results 05/17/19 06:06 05/17/19 06:06 Coagulation 05/16/19 Range/Units 15:35 PT 13.5 (12.2-14.9) Sec. INR 1.06 (0.87-1.13) APTT 30.9 (24.2-36.6) Sec. CBC 05/16/19 05/16/19 05/17/19 Range/Units 15:35 20:58 06:06 WBC 9.6 10.4 9.6 (4.5-11.0) K/mm3 RBC 4.52 4.55 4.34 (3.65-5.03) M/mm3 Hgb 11.9 12.6 11.8 (10.1-14.3) gm/dl Hct 36.9 37.2 35.2 (30.3-42.9) % Plt Count 425 454 H 382 (140-440) K/mm3 Lymph # 3.0 3.3 2.7 (1.2-5.4) K/mm3 [place] # 0.8 0.9 H 0.9 H (0.0-0.8) K/mm3 Eos # 0.1 0.0 0.1 (0.0-0.4) K/mm3 Baso # 0.0 0.1 0.1 (0.0-0.1) K/mm3 Comprehensive Metabolic Panel 05/16/19 05/16/19 05/17/19 Range/Units 15:35 20:58 06:06 Sodium 140 139 144 (137-145) mmol/L Potassium 3.6 3.9 3.6 (3.6-5.0) mmol/L Chloride 101.6 99.7 103.9 (98-107) mmol/L Carbon Dioxide 22 25 26 (22-30) mmol/L BUN 18 H 18 H 15 (7-17) mg/dL Creatinine 0.9 0.9 0.9 (0.7-1.2) mg/dL Glucose 94 100 106 H (65-100) mg/dL Calcium 9.3 9.7 9.3 (8.4-10.2) mg/dL EKG interpretations - Telemetry EKG Rhythm: Sinus Rhythm Assessment and Plan Acute Chest Pain -Continuous telemetry monitoring -Troponin negative x3 - Lexican done today is negative for stress induced ischcemia Hypertension -Maximize medical therapy was tolerated GERD -management per primary
[2019-05-17] MEDS: NORVASC PO SCH (13:33)
[2019-05-17] MEDS: COZAAR PO SCH (13:33)
[2019-05-17] MEDS: BABY ASPIRIN PO SCH (13:34)
[2019-05-17] MEDS: PROTONIX PO SCH (13:34)
[2019-05-17] MEDS: LOVENOX SUB-Q SCH (13:34)
[2019-05-17] MEDS: SODIUM CHLORIDE FLUSH SYRINGE 10 ML IV SCH ×2 (13:35→22:00)
[2019-05-17] MEDS: MORPHINE IV PRN (14:34)
--- NOTE | 2019-05-17 16:31 | Vascular Lab Report ---
DUPLEX DOPPLER LOWER EXTREMITY VEINS, BILATERAL INDICATION: elevated d dimers.r/o DVT. TECHNIQUE: Duplex doppler imaging was performed through the veins of both lower extremities using venous enoch mee and other maneuvers. COMPARISON: None available. FINDINGS: Right Common Femoral vein: Negative. Right Femoral vein: Negative. Right Popliteal vein: Negative. Right Calf veins: Negative. Left Common Femoral vein: Negative. Left Femoral vein: Negative. Left Popliteal vein: Negative. Left Calf veins: Negative. Additional findings: None. IMPRESSION: 1. No sonographic evidence for DVT in either lower extremity. Signer Name: Maged Almendarez MD Signed: 05/17/2019 4:27 PM Workstation Name: [id number]
[2019-05-17] MEDS ORDERED: AMBIEN PO PRN (18:18)
--- NOTE | 2019-05-17 18:27 | Progress Note ---
Assessment and Plan Assessment and plan: 73-year-old -[place] female with history of hypertension, GERD, and chronic back pain who presents to [facility] ED with complaints of progressively worsening intermittent left sided substernal chest pain for the past 2 days. --Atypical Acute Chest Pain; probably noncardiac Stress test negative, continue current management --GERD; probably cause of chest pain Pepcid/Protonix and supportive care Cardiology following --Elevated D dimers;neg PE follow venous Doppler --Hypertension ; moderate control Continue current antihypertensives,PRN meds --Obesity; BMI 37.8 Advice diet modification and weight reduction when stable --Full code --DVT PPX; Lovenox/SCD's Possible discharge home tomorrow if stable Plan of care reviewed with the patient, family members and her nurse History Interval history: Patient seen and examined medical records reviewed Complaints of chest pain, stress test negative for reversible ischemia Vital signs stable Patient complains of intermittent chest pain Hospitalist Physical - Constitutional Vitals: Temp Pulse Resp BP Pulse Ox 98.2 F 74 18 143/85 99 05/17/19 07:12 05/17/19 13:53 05/17/19 10:00 05/17/19 13:33 05/17/19 14:14 General appearance: Present: no acute distress, well-nourished, obese - EENT Eyes: Present: PERRL, EOM intact - Neck Neck: Present: supple, normal ROM - Respiratory Respiratory effort: normal Respiratory: bilateral: diminished, negative: rales, rhonchi, wheezing - Cardiovascular Rhythm: regular Heart Sounds: Present: S1 & S2 - Extremities Extremities: no ischemia, No edema - Abdominal General gastrointestinal: soft, non-tender, non-distended - Integumentary Integumentary: Present: clear, warm - Psychiatric Psychiatric: appropriate mood/affect, cooperative - Neurologic Neurologic: CNII-XII intact, moves all extremities Results - Labs CBC & Chem 7: 05/17/19 06:06 05/17/19 06:06 Labs: Laboratory Last Values WBC 9.6 K/mm3 (4.5-11.0) 05/17/19 06:06 RBC 4.34 M/mm3 (3.65-5.03) 05/17/19 06:06 Hgb 11.8 gm/dl (10.1-14.3) 05/17/19 06:06 Hct 35.2 % (30.3-42.9) 05/17/19 06:06 MCV 81 fl (79-97) 05/17/19 06:06 MCH 27 pg (28-32) L 05/17/19 06:06 MCHC 34 % (30-34) 05/17/19 06:06 RDW 14.2 % (13.2-15.2) 05/17/19 06:06 Plt Count 382 K/mm3 (140-440) 05/17/19 06:06 Lymph % (Auto) 27.9 % (13.4-35.0) 05/17/19 06:06 [place] % (Auto) 9.3 % (0.0-7.3) H 05/17/19 06:06 Eos % (Auto) 0.8 % (0.0-4.3) 05/17/19 06:06 Baso % (Auto) 1.4 % (0.0-1.8) 05/17/19 06:06 Lymph # 2.7 K/mm3 (1.2-5.4) 05/17/19 06:06 [place] # 0.9 K/mm3 (0.0-0.8) H 05/17/19 06:06 Eos # 0.1 K/mm3 (0.0-0.4) 05/17/19 06:06 Baso # 0.1 K/mm3 (0.0-0.1) 05/17/19 06:06 Seg Neutrophils % 60.6 % (40.0-70.0) 05/17/19 06:06 Seg Neutrophils # 5.8 K/mm3 (1.8-7.7) 05/17/19 06:06 PT 13.5 Sec. (12.2-14.9) 05/16/19 15:35 INR 1.06 (0.87-1.13) 05/16/19 15:35 APTT 30.9 Sec. (24.2-36.6) 05/16/19 15:35 450.44 ng/mlDDU (0-234) H 05/16/19 15:35 Sodium 144 mmol/L (137-145) 05/17/19 06:06 Potassium 3.6 mmol/L (3.6-5.0) 05/17/19 06:06 Chloride 103.9 mmol/L (98-107) 05/17/19 06:06 Carbon Dioxide 26 mmol/L (22-30) 05/17/19 06:06 18 mmol/L 05/17/19 06:06 BUN 15 mg/dL (7-17) 05/17/19 06:06 0.9 mg/dL (0.7-1.2) 05/17/19 06:06 Estimated GFR > 60 ml/min 05/17/19 06:06 17 % 05/17/19 06:06 Glucose 106 mg/dL (65-100) H 05/17/19 06:06 5.8 % (4-6) 05/16/19 20:58 Calcium 9.3 mg/dL (8.4-10.2) 05/17/19 06:06 < 0.010 ng/mL (0.00-0.029) 05/16/19 20:29 17 units/L (13-60) 05/16/19 15:35 Yellow (Yellow) 05/16/19 17:25 Clear (Clear) 05/16/19 17:25 5.0 (5.0-7.0) 05/16/19 17:25 Ur Specific Colt 1.014 (1.003-1.030) 05/16/19 17:25 >500 mg/dL (Negative) 05/16/19 17:25 Neg mg/dL (Negative) 05/16/19 17:25 Neg mg/dL (Negative) 05/16/19 17:25 Neg (Negative) 05/16/19 17:25 Neg (Negative) 05/16/19 17:25 Neg (Negative) 05/16/19 17:25 < 2.0 mg/dL (<2.0) 05/16/19 17:25 Ur Leukocyte Esterase Neg (Negative) 05/16/19 17:25 2.0 /HPF (0.0-6.0) 05/16/19 17:25 1.0 /HPF (0.0-6.0) 05/16/19 17:25 U Epithel Cells (Auto) < 1.0 /HPF (0-13.0) 05/16/19 17:25 1+ /HPF (Negative) 05/16/19 17:25 Hyaline Casts 2 /LPF 05/16/19 17:25 Active Medications - Current Medications Current Medications: Generic Name Dose Route Start Last Admin Trade Name Freq PRN Reason Stop Dose Admin Acetaminophen 650 mg 05/16/19 20:25 05/17/19 04:35 Tylenol PO 650 mg Q4H PRN Administration Pain MILD(1-3)/Fever >100.5/HURST Albuterol 2.5 mg 05/16/19 20:25 Proventil IH Q3HRT PRN Shortness Of Breath Amlodipine Besylate 5 mg 05/17/19 10:00 05/17/19 13:33 Norvasc PO 5 mg DAILY PAM Administration Aspirin 81 mg 05/17/19 10:00 05/17/19 13:34 Baby Aspirin PO 81 mg QDAY PAM Administration Atorvastatin Calcium 40 mg 05/16/19 22:00 05/16/19 22:45 Lipitor PO 40 mg QHS PAM Administration Enoxaparin Sodium 40 mg 05/17/19 10:00 05/17/19 13:34 Lovenox SUB-Q 40 mg QDAY PAM Administration Hydralazine HCl 10 mg 05/16/19 20:28 05/16/19 23:16 Apresoline IV 10 mg Q4HR PRN Administration Blood Pressure Hydromorphone HCl 0.5 mg 05/16/19 20:25 Dilaudid IV Q3H PRN Pain , Severe (7-10) Sodium Chloride 1,000 mls @ 42 mls/hr 05/16/19 21:00 05/16/19 22:39 Nacl 0.9% 1000 Ml IV 42 mls/hr DIRECT PAM Administration Losartan Potassium 50 mg 05/17/19 10:00 05/17/19 13:33 Cozaar PO 50 mg QDAY PAM Administration Nitroglycerin 0.4 mg 05/16/19 20:25 Nitrostat SL Q5M PRN Chest Pain Ondansetron HCl 4 mg 05/16/19 20:25 Zofran IV Q8H PRN Nausea And Vomiting Oxycodone/Acetaminophen 1 tab 05/17/19 18:17 Percocet 5/325 PO Q6H PRN Pain, Moderate (4-6) Pantoprazole Sodium 40 mg 05/17/19 10:00 05/17/19 13:34 Protonix PO 40 mg DAILY PAM Administration Pravastatin Sodium 20 mg 05/16/19 22:00 05/16/19 22:45 Pravachol PO 20 mg QHS PAM Administration Sodium Chloride 10 ml 05/16/19 22:00 05/17/19 13:35 Sodium Chloride Flush Syringe 10 Ml IV 10 ml BID PAM Administration Sodium Chloride 10 ml 05/16/19 20:25 Sodium Chloride Flush Syringe 10 Ml IV PRN PRN LINE FLUSH Tizanidine HCl 2 mg 05/16/19 21:38 05/16/19 22:44 Zanaflex PO 2 mg QPM PRN Administration Muscle Spasm Zolpidem Tartrate 5 mg 05/17/19 18:18 Ambien PO QHS PRN Sleep
[2019-05-17] MEDS: PERCOCET 5/325 PO PRN (21:41)
[2019-05-17] MEDS: PRAVACHOL PO SCH (21:41)
[2019-05-18] MEDS: PERCOCET 5/325 PO PRN ×2 (05:26→14:59)
[2019-05-18] MEDS: APRESOLINE IV PRN ×2 (07:27→16:31)
[2019-05-18] MEDS: NORVASC PO SCH (09:36)
[2019-05-18] MEDS: BABY ASPIRIN PO SCH (09:36)
[2019-05-18] MEDS: COZAAR PO SCH (09:36)
[2019-05-18] MEDS: LOVENOX SUB-Q SCH (09:37)
[2019-05-18] MEDS: PROTONIX PO SCH (09:38)
[2019-05-18] MEDS: SODIUM CHLORIDE FLUSH SYRINGE 10 ML IV SCH (09:39)
--- NOTE | 2019-05-18 12:42 | Progress Note ---
Assessment and Plan Chest Pain, atypical Troponin negative x3. Lexiscan this admission is negative for stress induced ischcemia. Normal LVEF by echocardiogram. No evidence of PE by chest CTA. Hypertension GERD No further cardiac workup indicated. We will sign off. Subjective Date of service: 05/18/19 Interval history: Patient reports she is feeling better. She denies chest pain. Objective Vital Signs Temp Pulse Resp BP Pulse Ox 05/18/19 11:29 98.2 F 90 18 175/98 98 05/18/19 09:36 77 157/79 05/18/19 07:34 98.2 F 77 20 169/72 93 05/18/19 07:27 62 177/81 05/18/19 05:26 18 05/18/19 04:31 98.4 F 62 16 177/81 100 05/17/19 23:27 98.4 F 66 16 162/80 98 05/17/19 21:41 18 05/17/19 20:11 97.5 F L 73 18 178/96 97 05/17/19 19:22 77 05/17/19 17:05 98.0 F 18 197/94 05/17/19 14:14 99 05/17/19 13:53 74 05/17/19 13:33 83 143/85 - Physical Examination General: No Apparent Distress HEENT: Positive: PERRL, EOMI Neck: Positive: neck supple Cardiac: Positive: Reg Rate and Rhythm Lungs: Positive: Decreased Breath Sounds Neuro: Positive: Grossly Intact Abdomen: Positive: Unremarkable Extremities: Absent: edema
--- NOTE | 2019-05-18 15:23 | Discharge Summary ---
Providers - Providers Date of Admission: 05/16/19 20:25 Date of discharge: 05/18/19 Attending physician: SARAH DEVI 05/16/19 20:31 Consult to Physician [CONS] Routine Comment: Consulting Provider: HANNA EVANS Physician Instructions: Reason For Exam: chest pain, hx htn Primary care physician: MACHINE REPAIR PERSON Hospitalization Reason for admission: chest pain Condition: Stable Pertinent studies: CTA chest; evidence of PE no acute abnormality Stress test; no ischemia Lower extremity venous Doppler; negative for DVT Echocardiogram; normal EF 55-60% Chest x-ray; normal study Hospital course: 73-year-old -[place]ol[place] female with history of hypertension, GERD, and chronic back pain who presents to [facility] ED with complaints of progressively worsening intermittent left sided substernal chest pain for the past 2 days. --Atypical Acute Chest Pain; probably noncardiac Stress test negative, continue current management --GERD; probably cause of chest pain Pepcid/Protonix and supportive care Cardiology following --Elevated D dimers;neg PE follow venous Doppler --Hypertension ; moderate control Continue current antihypertensives,PRN meds --Obesity; BMI 37.8 Advice diet modification and weight reduction when stable --Full code --DVT PPX; Lovenox/SCD's Possible discharge home tomorrow if stable Plan of care reviewed with the patient, family members and her nurse Disposition: DC-01 TO HOME OR SELFCARE Time spent for discharge: 31 min Core Measure Documentation - Palliative Care Palliative Care/ Comfort Measures: Not Applicable - Core Measures Any of the following diagnoses?: none Exam - Constitutional Vitals: Temp Pulse Resp BP Pulse Ox 98.2 F 90 18 175/98 98 05/18/19 11:29 05/18/19 11:29 05/18/19 11:29 05/18/19 11:29 05/18/19 11:29 General appearance: Present: no acute distress, well-nourished, obese - EENT Eyes: Present: PERRL, EOM intact - Neck Neck: Present: supple, normal ROM - Respiratory Respiratory effort: normal Respiratory: bilateral: diminished, negative: rales, rhonchi, wheezing - Cardiovascular Rhythm: regular Heart Sounds: Present: S1 & S2 - Extremities Extremities: no ischemia, No edema - Abdominal General gastrointestinal: Present: soft, non-tender, non-distended, normal bowel sounds - Integumentary Integumentary: Present: clear, warm - Musculoskeletal Musculoskeletal: strength equal bilaterally, generalized weakness - Psychiatric Psychiatric: appropriate mood/affect, cooperative - Neurologic Neurologic: CNII-XII intact, moves all extremities Plan Activity: advance as tolerated, fall precautions Diet: other (cardiac diet) Additional Instructions: Advised to seek private campaign advisor for further evaluation and management if you have persistent chest pain. If you have chest pain or shortness of breath contact in the [place] emergency room. Advised weight reduction as tolerated Follow up with: PRIMARY CAREMD [Primary Care Provider] - 3-5 Days HANNA EVANS MD [Staff Physician] - 7 Days Prescriptions: Aspirin [Aspirin BABY CHEW TAB] 81 mg PO QDAY #30 tab.chew Famotidine [Pepcid] 20 mg PO BID #30 tablet oxyCODONE /ACETAMINOPHEN [Percocet 5/325 mg] 1 tab PO BID PRN #6 tablet PRN Reason: Pain, Moderate (4-6)
[2019-05-18 15:59] VITALS: BP 172/90
[2019-05-18] MEDS: ZANAFLEX PO PRN (16:30)
--- NOTE | 2019-05-18 22:44 | Treadmill Report ---
THALLIUM STRESS TEST REPORT LEFT VENTRICLE: Left ventricular chamber size is within normal spread. Perfusion study demonstrates homogeneous uptake of the tracer in all segments, no significant perfusion defects identified. Gated analysis demonstrates normal left ventricular systolic function, ejection fraction 65%. CONCLUSION: Normal myocardial perfusion study. JOB# [id number] CA/NTS
== END 2019-05-18 17:00 | disposition home or self-care (01) ==
LOC: ED 14:57 → 4A 20:25
PROVIDERS: ADMIT Internal Medicine; ATTEND Internal Medicine
DX: R07.89 Other chest pain (principal); I10 Essential (primary) hypertension; K21.9 Gastro-esophageal reflux disease without esophagitis; G89.29 Other chronic pain; M54.9 Dorsalgia, unspecified; Z90.710 Acquired absence of both cervix and uterus; Z79.82 Long term (current) use of aspirin
CPT/HCPCS: 36415; 71045; 71275; 78452; 80048; 81001; 83036; 83690; 84484; 85025; 85379; 85610; 85730; 87116; 93005; 93010; 93017; 93306; 93970; 96372; 96374; 96375; 96376; 99291; A9270; A9502; C9113; G0378; J0360; J1650; J2270; J2405; J2785; J7030; Q9967